=== PATIENT | female | born 1985 | race Two or more races ===

== ENCOUNTER 2022-05-10 19:44 | Emergency (ER) | payer SELFPAY ==
[~2022-05-10] VITALS: Ht 160 cm; Wt 81.8 kg
[2022-05-10 19:45] VITALS: BP 154/71
[2022-05-10] MEDS ORDERED: MIDAZOLAM HCL 2MG/2ML 2ml VIAL (1mg/ml) ONE (20:28)
[2022-05-10] MEDS ORDERED: MIDAZOLAM HCL 2MG/2ML 2ml VIAL (1mg/ml) IV ONE (20:30)
== END 2022-05-10 21:08 | disposition short-term general hospital (02) ==
LOC: EDBD 19:44 → ER 19:49
DX: I10 Essential (primary) hypertension (principal); F10.10 Alcohol abuse, uncomplicated; V49.9XXA Car occupant (driver) (passenger) injured in unspecified traffic accident, initial encounter; Y93.89 Activity, other specified; Y92.89 Other specified places as the place of occurrence of the external cause; Y99.8 Other external cause status
CPT/HCPCS: 93005; 96372; 99283; J2250